=== PATIENT | male | born 1980 | race African-American/Black ===

== ENCOUNTER 2016-09-04 04:51 | Day surgery (SDC) | payer OTHER ==
[2016-09-02 12:40] VITALS: BMI 56.5
[2016-09-04] MEDS ORDERED: BUPIVACAINE HCL/PF 0.5% (5MG/ML) 10 ML VIAL ONE ×2 (07:10→10:32)
[2016-09-04] MEDS ORDERED: SUCCINYLCHOLINE CHLORIDE 200 MG/10 ML VIAL ONE (07:24)
[2016-09-04] MEDS ORDERED: PROPOFOL 20 ML ONE ×3 (07:24→09:52)
[2016-09-04] MEDS ORDERED: ceFAZolin SODIUM 1 GM VIAL ONE ×2 (07:24→09:05)
[2016-09-04] MEDS ORDERED: MIDAZOLAM HCL 2 MG/2 ML SINGLE DOSE VIAL ONE (07:24)
[2016-09-04 08:18] LABS: INR 1.08 (0.82-1.09); PROTHROMBIN TIME (PATIENT) 11.9 SEC (9.98-11.88)
[2016-09-04] MEDS ORDERED: ROCURONIUM BROMIDE 50 MG/5 ML VIAL ONE ×2 (08:50→09:15)
[2016-09-04] MEDS ORDERED: SODIUM CHLORIDE 0.9% P/F 10 ML VIAL IJ ONE (09:05)
--- NOTE | 2016-09-04 09:09 | HP ---
[facility] - Chief Complaint Chief Complaint: left knee pain History of Present Illness: left knee medial meniscus tear and partial quadriceps tendon rupture History Source: Patient Limitations to Obtaining History: No Limitations - Past Medical History Allergies/Adverse Reactions: Allergies Allergy/AdvReac Type Severity Reaction Status Date / Time Penicillins Allergy Hives Verified 09/04/16 07:23 Cardiovascular: Yes: Other ("Borderline HTN") Pulmonary: Yes: Sleep Apnea - Current Medications Current Medications: Medication Instructions Recorded Celecoxib [CeleBREX -] 200 mg PO BID #14 capsule 09/01/14 Meloxicam [Mobic] 15 mg PO DAILY 09/02/16 Oxycodone HCl/Acetaminophen 2 each PO Q8H 09/02/16 [Percocet 10-325 mg Tablet] Satellite Physical Exam - Physical Examination Vital Signs: Vital Signs Period Temp Pulse Resp BP Sys/Villa Pulse Ox Last 24 Hr 97.9 F 89 20 147/90 99 General Appearance: Well Nourished ENT: Clear Lung: Clear to auscultation Heart: Regular rate & rhythm Breasts: Soft Abdomen: Soft Extremities: No edema Satellite Impression/Plan - Impression/Plan Impression: left knee medial meniscus tear, and partial distal quadriceps tendon rupture Operative Procedure: left knee arthroscopy, partial medial meniscectomy, open distal quadriceps tendon repair Date to be Performed: 09/04/16
[2016-09-04] MEDS ORDERED: ceFAZolin SODIUM 1 GM VIAL IVPB ONE (09:22)
[2016-09-04] MEDS ORDERED: BUPIVACAINE HCL/PF 0.5% (5MG/ML) 10 ML VIAL IJ ONE (09:52)
[2016-09-04] MEDS ORDERED: NEOSTIGMINE METHYLSULFATE 0.5 MG/ML - 10 ML MDV ONE (09:56)
[2016-09-04] MEDS ORDERED: METOPROLOL TARTRATE 5 MG/5 ML VIAL ONE (09:58)
[2016-09-04] MEDS ORDERED: HYDROmorphone HCL/PF 1 MG/ML VIAL (FOR PYXIS CHARGING ONLY) ONE (10:02)
[2016-09-04] MEDS ORDERED: PROMETHAZINE HCL 25 MG/1 ML VIAL IVPUSH PRN (10:13)
[2016-09-04] MEDS ORDERED: oxyCODONE HCL 5 MG TABLET PO PRN (10:13)
[2016-09-04] MEDS ORDERED: ONDANSETRON 4 MG/2 ML VIAL IVPUSH PRN (10:13)
[2016-09-04] MEDS ORDERED: LACTATED RINGERS SOLUTION 1,000 ML IV SCH (10:15)
--- NOTE | 2016-09-04 10:43 | OP ---
Operative Note - Note: Operative Date: 09/04/16 Pre-Operative Diagnosis: left knee pain, medial meniscus tear, distal quadriceps tendon repair Operation: left knee arthroscopy, partial medial meniscectomy, debridement chondroplasty, open distal quadriceps tendon repair, removal of loose bodies Post-Operative Diagnosis: Same as Pre-op Surgeon: Humberto Amador Anesthesiologist/TREE DRILLER: Hipolito Valle Anesthesia: General, Local Estimated Blood Loss (mls): 50 Blood Volume Replaced (mls): 0 Fluid Volume Replaced (mls): 1,000 Operative Report Dictated: Yes
[2016-09-04] MEDS ORDERED: ACETAMINOPHEN INJECTION 100 ML IVPB ONE (12:02)
[2016-09-04] MEDS ORDERED: ACETAMINOPHEN 1000 MG/100 ML VIAL (NON FORMULARY) IVPB ONE ×2 (12:04→13:09)
[2016-09-04 12:39] VITALS: TEMP 98.5
--- NOTE | 2016-09-04 12:47 | OP ---
DATE OF OPERATION: 09/04/2016 PREOPERATIVE DIAGNOSIS: Left knee pain, medial meniscus tear, and distal quadriceps tendon rupture. POSTOPERATIVE DIAGNOSIS: Left knee pain, medial meniscus tear, and distal quadriceps tendon rupture, osteoarthritis. PROCEDURE: Left knee arthroscopy, partial medial meniscectomy, debridement chondroplasty, removal of loose bodies, and open distal quadriceps tendon repair. SURGEON: Mata Marcos MD ACADEMIC COMPUTING DIRECTOR: None. ANESTHESIA: Laryngeal mask anesthesia and local injection of 20 mL 0.5% Marcaine. Hipolito Valle CRNA DRAINS: None. COMPLICATIONS: None. FLUID REPLACEMENT: 1000 mL Plasmalyte. BLOOD LOSS: 50 mL. BLOOD GIVEN: None. This patient is a 35-year-old male with a preoperative diagnosis of left knee pain, medial meniscus tear, and distal quadriceps tendon rupture. After understanding the potential risks, complications, alternatives, and benefits to surgical versus nonsurgical treatment, the patient elected to undergo this procedure. He understands he will not get complete relief of his pain, he may have continued disability. The patient was brought to the operating room, peripheral IV placed, IV sedation given. LM anesthesia was induced. Tourniquet was applied to the left upper thigh. The left lower extremity was prepped and draped in sterile fashion and arthroscopy was performed. The patient is quite overweight. At times difficult to control bleeding. He had preoperative high PTT. His liver enzymes are high, likely because of a fatty liver, but with the tourniquet up at 325 mmHg, we did our best. Superomedial outflow portal was established, lateral portal was established, under direct visualization a medial portal was established. The patient was seen to have a large grade 4 area of osteoarthritis on the medial femoral condyle. I am sure this is the cause of his medial-sided pain. There were a lot of loose bodies, large pieces of articular cartilage and loose flaps peeling off the bone. A debridement chondroplasty was performed and removal of loose bodies performed. Other large pieces had already denuded from the bone. The patient had a small tear of the posterior horn of the medial meniscus. This was debrided as well. Photographs were taken. The lateral compartment looked good, the patellofemoral compartment looked good, the ACL looked good. We removed the arthroscopy portals. Excess saline was removed, and the portals were closed with 3-0 nylon sutures. We then re-prepped. We took off the Styrofoam ring, re-prepped and draped in a sterile fashion and the previous incision was used. A longitudinal incision was made with a number 10 scalpel blade. Subcutaneous hemostasis achieved with a Bovie cautery. Weitlaner retractors were placed into the wound. Dissection was done with the Bovie cautery as well as Perez scissors. There was a tremendous amount of scar tissue in this area binding down normal tissue planes. I was able to get down to the patella. That and the patellar tendon looked good. The distal quadriceps tendon was avulsed off the medial aspect of the patella. The central portion/rectus femoris and the entire lateral aspect/vastus lateralis all looked good. It felt good, it looked good, and was connected to the top of the patella. Therefore the medial retinaculum and medial vastus medialis was repaired with a single interrupted FiberWire. It came together nicely. I put the knee through a range of motion though it looked good. The knee was copiously irrigated and washed out. I then used Gelfoam soaked with thrombin to try to get additional hemostasis to help his elevated liver enzymes and PTT. After letting it sit there for 5 minutes, it was removed and 0 Vicryl used to close the deep adipose and scar tissue layer. 2-0 Vicryl was used to close the deep dermal layer. Final skin reapproximation was done with pedro. The area was then washed and dried, and 20 mL 0.5% Marcaine injected around the surgical incision. It was then covered with Xeroform, 4 x 4 gauze, ABDs, Webril, and two 6-inch Tony bandages. The tourniquet was taken down after total tourniquet time of about 60 minutes. There were no complications during the case. The patient tolerated the procedure quite well, was brought to the ambulatory recovery room in stable condition. MATA MARCOS M.D. [id number]
[2016-09-04] MEDS ORDERED: oxyCODONE HCL 5 MG TABLET ONE ×2 (13:06→13:43)
[2016-09-04 14:43] VITALS: BP 142/72; PULSE 107
--- NOTE | 2016-09-04 15:35 | EKG ---
Test Reason : Blood Pressure : / mmHG Vent. Rate : 095 BPM Atrial Rate : 095 BPM P-R Int : 184 ms QRS Dur : 106 ms QT Int : 394 ms P-R-T Axes : 041 011 039 degrees QTc Int : 495 ms NORMAL SINUS RHYTHM INCOMPLETE RIGHT BUNDLE BRANCH BLOCK NONSPECIFIC T WAVE ABNORMALITY PROLONGED QT ABNORMAL ECG WHEN COMPARED WITH ECG OF 31-AUG-2014 10:11, NO SIGNIFICANT CHANGE WAS FOUND Confirmed by JAYCOB GUAMAN, LO ([id number]) on 09/04/2016 3:35:26 PM Referred By: Humberto Amador Confirmed By:LO DEVRIES MD
--- NOTE | 2016-09-05 13:21 | PATH ---
Surgical Pathology Report Patient Name: ANJUM GUAMAN Med. Rec. #: [id number] /Age/Gender: 1980 (Age: 35) / M Account: [id number] Location: [facility] Taken: 09/04/2016 Received: 09/04/2016 Reported: 09/05/2016 Physicians: Humberto Amador M.D. Specimen(s) Received SHAVINGS LEFT KNEE Clinical History Torn meniscus left knee Final Diagnosis SOFT TISSUE, LEFT KNEE, ARTHROSCOPIC SHAVINGS: SYNOVIUM AND FIBROCARTILAGE WITH MYXOHYALINE DEGENERATION. Electronically Signed Yfn Kulkarni M.D. Gross Description Received in formalin, labeled "left knee shavings" is a 1.4 x 1.4 x 0.3 cm aggregate of pereira-yellow soft tissue fragments. A reimbursement representative portion is submitted in one cassette. /09/04/201609/04/2016
== END 2016-09-04 14:30 | disposition home or self-care (01) ==
LOC: JASU-SURG 04:51
PROVIDERS: ATTEND Orthopaedic Surgery
PROC: 0LQM0ZZ Repair Left Upper Leg Tendon, Open Approach (ICD-10-PCS; 2016-09-04)
PROC: 0SBD4ZZ Excision of Left Knee Joint, Percutaneous Endoscopic Approach (ICD-10-PCS; principal; 2016-09-04 08:00)
PROC: 0SCD4ZZ Extirpation of Matter from Left Knee Joint, Percutaneous Endoscopic Approach (ICD-10-PCS; 2016-09-04 08:00)
DX: S76.112A Strain of left quadriceps muscle, fascia and tendon, initial encounter (principal); S83.242A Other tear of medial meniscus, current injury, left knee, initial encounter; M17.12 Unilateral primary osteoarthritis, left knee; X58.XXXA Exposure to other specified factors, initial encounter; Y93.9 Activity, unspecified; Y92.9 Unspecified place or not applicable; Y99.9 Unspecified external cause status
CPT/HCPCS: 36415; 85610; 85730; 88304-TC; 93005; 93010; 94760

== ENCOUNTER 2018-04-30 17:15 | Emergency (ER) | payer OTHER ==
--- NOTE | 2018-04-30 17:36 | PDOC ---
Rapid Medical Evaluation Time Seen by Provider: 04/30/18 17:31 Medical Evaluation: Allergies Allergy/AdvReac Type Severity Reaction Status Date / Time Penicillins Allergy Hives Verified 09/04/16 07:23 04/30/18 17:33 I have performed a brief in-person evaluation of this patient. The patient presents with a chief complaint of:L lower back pain since yesterday. No trauma or other inciting factors. No sxs. Did not take anything for pain. Morbidly obesed male Pertinent physical exam findings:Unremarkable I have ordered the following:nothing The patient will proceed to the ED for further evaluation. Discharge Disposition - Diagnosis Low back pain Qualifiers: Chronicity: acute Back pain laterality: left Sciatica presence: without sciatica Qualified Code(s): M54.5 - Low back pain - Referrals - Patient Instructions - Post Discharge Activity
[2018-04-30 17:41] VITALS: BP 210/94; PULSE 116; TEMP 98.6; BMI 64.5
[2018-04-30] MEDS ORDERED: diazePAM 5 MG TABLET PO ONE (17:54)
[2018-04-30] MEDS ORDERED: KETOROLAC TROMETHAMINE 60 MG/2 ML VIAL IM ONE (17:54)
[2018-04-30] MEDS ORDERED: KETOROLAC TROMETHAMINE 60 MG/2 ML VIAL ONE (17:59)
[2018-04-30] MEDS ORDERED: diazePAM 5 MG TABLET ONE (17:59)
--- NOTE | 2018-04-30 18:00 | PDOC ---
History of Present Illness - General Chief Complaint: Back Pain Stated Complaint: BACK PAIN Time Seen by Provider: 04/30/18 17:31 History Source: Patient Exam Limitations: No Limitations - History of Present Illness Initial Comments: 04/30/18 17:55 37 yr male with left lower back pain radiating to the buttocks started yesterday while driving. Pt did not take any pain meds now has diffuculty ambulating. Pt denies any urinary complaints. Pt is obese has no medications no history of high blood pressure. Occurred: reports: yesterday Severity: reports: moderate Pain Location: reports: back Associated Symptoms (Fall): muscle spasms Past History - Past Medical History Allergies/Adverse Reactions: Allergies Allergy/AdvReac Type Severity Reaction Status Date / Time Penicillins Allergy Hives Verified 04/30/18 17:35 Home Medications: Ambulatory Orders Diazepam [Valium] 5 mg PO Q8H PRN #15 tablet MDD 15mg 04/30/18 Naproxen [Naprosyn -] 500 mg PO BID PRN #14 tablet 04/30/18 Anemia: No Asthma: No Cancer: No Cardiac Disorders: Yes (occasional papitations) CVA: No COPD: No CHF: No Dementia: No Diabetes: No GI Disorders: No Disorders: No HTN: Yes (stopped taking meds in 2009) Hypercholesterolemia: No Liver Disease: No Seizures: No Thyroid Disease: Yes (hypoactive, stopped taking meds 2009) - Surgical History Orthopedic Surgery: Yes (left ankle orif 1998, harware removed) - Suicide/Smoking/Psychosocial Hx Smoking History: Never smoked Have you smoked in the past 12 months: No If you are a former smoker, when did you quit?: 2012 Hx Alcohol Use: No Drug/Substance Use Hx: No Substance Use Type: None Hx Substance Use Treatment: No *Physical Exam - Vital Signs Last Vital Signs Temp Pulse Resp BP Pulse Ox 98.6 F 116 H 16 210/94 99 04/30/18 17:37 04/30/18 17:37 04/30/18 17:37 04/30/18 17:37 04/30/18 17:37 - Physical Exam General Appearance: Yes: Nourished, Appropriately Dressed, Obese HEENT: positive: EOMI, SANTHOSH, Normal ENT Inspection Neck: positive: Supple. negative: Tender Cardiovascular: positive: Regular Rhythm, Tachycardia (pain ) Gastrointestinal/Abdominal: positive: Other (obese abdomen ) Musculoskeletal: positive: Normal Inspection, Muscle Spasm. negative: Vertebral Tenderness Extremity: positive: Normal Capillary Refill, Normal Inspection, Normal Range of Motion Integumentary: positive: Normal Color, Dry, Warm Neurologic: positive: Fully Oriented, Alert, Normal Mood/Affect, Normal Response , Motor Strength 5/5 Medical Decision Making - Medical Decision Making 04/30/18 18:03 cc: low back pain to left buttock and thigh no saddle anesthesia no urinary complaints no abd pain will give toradol and valium 04/30/18 18:42 pt feels better after meds will dc home with naprosyn and valium strict follow up with the PMD and the urologist Dr. Redman Return if any worsening symptoms 04/30/18 18:57 pt improved ambulated out of the ER pain improved. dc inst verbally given and all questions asked and answered at discharge. *DC/Admit/Observation/Transfer Diagnosis at time of Disposition: Low back pain Qualifiers: Chronicity: acute Back pain laterality: left Sciatica presence: without sciatica Qualified Code(s): M54.5 - Low back pain - Discharge Dispostion Disposition: HOME Condition at time of disposition: Good - Prescriptions Prescriptions: Diazepam [Valium] 5 mg PO Q8H PRN #15 tablet MDD 15mg PRN Reason: Back Pain Naproxen [Naprosyn -] 500 mg PO BID PRN #14 tablet PRN Reason: Back Pain - Referrals Referrals: Gonzalo Parker MD [Primary Care Provider] - Rodolfo Redman MD [Staff Physician] - - Patient Instructions Additional Instructions: apply warm compresses to the area of pain every 4-6hrs for 20 minutes take the pain medication as prescribed follow up with primary care doctor and the urologist if any worsening symptoms - Post Discharge Activity
[2018-04-30 18:25] LABS: URINE APPEARANCE CLEAR; URINE BILIRUBIN NEGATIVE (<2.0 mg/dL); URINE COLOR YELLOW; URINE GLUCOSE (UA) NEGATIVE (NEGATIVE); URINE KETONE NEGATIVE (NEGATIVE); URINE LEUK ESTERASE NEGATIVE (NEGATIVE); URINE NITRITE NEGATIVE (NEGATIVE); URINE PROTEIN NEGATIVE (NEGATIVE); URINE UROBILINOGEN NEGATIVE mg/dL (0.2-1.0)
[2018-04-30 18:34] LABS: EPI CELLS RARE /HPF (FEW); URINE MUCUS RARE
== END 2018-04-30 19:01 | disposition home or self-care (01) ==
LOC: JERFT 17:15
PROC: 3E0233Z Introduction of Anti-inflammatory into Muscle, Percutaneous Approach (ICD-10-PCS; principal; 2018-04-30)
DX: M54.5 Low back pain (principal); I10 Essential (primary) hypertension; E03.9 Hypothyroidism, unspecified
CPT/HCPCS: 81003; 81015; 96372; 99281-25

== ENCOUNTER 2022-01-22 09:37 | Inpatient (IN) | payer OTHER ==
[2022-01-22] MEDS ORDERED: SODIUM CHLORIDE IV ONE (11:16)
[2022-01-22] MEDS ORDERED: ACETAMINOPHEN 1000 MG/100 ML BAG IVPB ONE (11:18)
[2022-01-22] MEDS ORDERED: MEROPENEM 1 GM in DEXTROSE 5%-WATER 100 ML IVPB ONE (11:21)
[2022-01-22] MEDS ORDERED: VANCOMYCIN/WATER 2 GM/400 ML PREMIX BAG IVPB ONE (11:24)
[2022-01-22] MEDS ORDERED: SODIUM CHLORIDE 0.9% 1000 ML INFUS.BAG IV ONE (11:25)
[2022-01-22] MEDS ORDERED: ACETAMINOPHEN INJECTION 100 ML IVPB ONE (11:49)
[2022-01-22] MEDS ORDERED: MEROPENEM 1 GM VIAL (RESTRICTED TO ID) IVPB ONE (12:04)
[2022-01-22 12:06] LABS: VENOUS BASE EXCESS -1.4 mmol/L (-2-2); VENOUS O2 SATURATION 87.7 % (70-80); VENOUS PCO2 37.9 mmHg (38-52); VENOUS PH 7.401 (7.310-7.410)
[2022-01-22 12:08] LABS: BASO % 0.6 % (0-2.0); EOS % 0.3 % (0-4.5); HEMATOCRIT 38.8 % (35.4-49); HEMOGLOBIN 13.5 GM/dL (11.7-16.9); LYMPH % 12.6 % (8-40); MCH 28.9 pg (25.7-33.7); MCHC 34.9 g/dl (32.0-35.9); MEAN CELL VOLUME 82.7 fl (80-96); MEAN PLT VOLUME 8.3 fl (7.5-11.1); MONO % 8.9 % (3.8-10.2); NEUT % 77.6 % (42.8-82.8); PLATELET COUNT 446 10^3/uL (134-434); RBC 4.69 M/mm3 (4.00-5.60); RDW 13.5 % (11.9-15.9); WHITE BLOOD COUNT 17.1 K/mm3 (4.0-10.0)
[2022-01-22 12:16] LABS: INR 1.33 (0.83-1.09); PROTHROMBIN TIME (PATIENT) 15.3 SEC (9.7-13.0)
[2022-01-22 12:18] LABS: ACTIVATED PTT 35.1 SECONDS (25.2-36.5)
[2022-01-22] MEDS ORDERED: morphine CARPU-JECT 4 MG/1 ML DISP.SYRIN IVPUSH ONE (12:25)
[2022-01-22 12:28] LABS: ALBUMIN 3.5 g/dl (3.4-5.0); CALCIUM 9.3 mg/dL (8.5-10.1)
[2022-01-22 12:29] LABS: BLOOD UREA NITROGEN 9.4 mg/dL (7-18)
[2022-01-22 12:32] LABS: CREATININE 0.9 mg/dL (0.55-1.3)
[2022-01-22 12:33] LABS: BILIRUBIN,TOTAL 0.8 mg/dL (0.2-1); TOT PROT 7.4 g/dl (6.4-8.2)
[2022-01-22 12:34] LABS: LACTIC ACID 2.5 mmol/L (0.4-2.0)
[2022-01-22] MEDS ORDERED: morphine SULFATE 4 MG/ML VIAL ONE (12:54)
[2022-01-22] MEDS ORDERED: SODIUM CHLORIDE 1,000 ML IV SCH ×2 (13:15→15:59)
[2022-01-22] MEDS ORDERED: BUPIVACAINE HCL/PF 0.5% (5MG/ML) 10 ML VIAL ONE ×2 (13:59→14:11)
[2022-01-22] MEDS ORDERED: PROPOFOL 20 ML ONE ×3 (14:07)
[2022-01-22] MEDS ORDERED: VANCOMYCIN 1,000 MG VIAL (RESTRICTED TO ID ONLY) ONE (14:12)
[2022-01-22] MEDS ORDERED: MIDAZOLAM HCL 2 MG/2 ML SINGLE DOSE VIAL ONE ×2 (14:18)
[2022-01-22] MEDS ORDERED: MEROPENEM 1 GM in DEXTROSE 5%-WATER 100 ML IVPB SCH ×2 (14:30→22:00)
[2022-01-22] MEDS ORDERED: VANCOMYCIN 1,000 MG VIAL (RESTRICTED TO ID ONLY) IVPB ONE (14:50)
[2022-01-22] MEDS ORDERED: BUPIVACAINE HCL/PF 0.5% (5MG/ML) 10 ML VIAL IJ ONE (14:54)
[2022-01-22] MEDS ORDERED: ONDANSETRON 4 MG/2 ML VIAL IVPUSH PRN (16:07)
[2022-01-22] MEDS ORDERED: INSULIN SLIDING SCALE (NOVOLOG) 1 VIAL SQ SCH (16:30)
[2022-01-22] MEDS: LACTATED RINGERS SOLUTION 1,000 ML IV SCH (17:00)
[2022-01-22] MEDS ORDERED: INSULIN (NOVOLOG) ASPART 100 UNITS/ML 10ML VIAL ONE (21:09)
[2022-01-22] MEDS: INSULIN SLIDING SCALE (NOVOLOG) 1 VIAL SQ SCH (21:47)
[2022-01-22] MEDS: INSULIN (LEVEMIR) 100 UNITS/ML UNITS SQ SCH (21:48)
[2022-01-22] MEDS ORDERED: INSULIN (LEVEMIR) 100 UNITS/ML UNITS SQ SCH (22:00)
[2022-01-23] MEDS ORDERED: MEROPENEM 1 GM VIAL (RESTRICTED TO ID) IVPB ONE ×3 (01:37→17:21)
[2022-01-23] MEDS ORDERED: ACETAMINOPHEN 1000 MG/100 ML BAG IVPB ONE (01:53)
[2022-01-23] MEDS ORDERED: MEROPENEM 1 GM in DEXTROSE 5%-WATER 100 ML IVPB SCH (02:30)
[2022-01-23] MEDS: INSULIN (LEVEMIR) 100 UNITS/ML UNITS SQ SCH ×2 (06:05→21:57)
[2022-01-23] MEDS: INSULIN SLIDING SCALE (NOVOLOG) 1 VIAL SQ SCH ×5 (06:05→21:59)
[2022-01-23] MEDS: LACTATED RINGERS SOLUTION 1,000 ML IV SCH (07:16)
[2022-01-23] MEDS ORDERED: morphine SULFATE 4 MG/ML VIAL IVPUSH PRN (09:13)
[2022-01-23] MEDS ORDERED: oxyCODONE HCL 5 MG TABLET PO PRN (09:13)
[2022-01-23] MEDS ORDERED: NALOXONE HCL 0.4 MG/ML VIAL IVPUSH PRN (09:13)
[2022-01-23] MEDS ORDERED: ACETAMINOPHEN 325 MG TABLET (FP) PO PRN ×2 (09:13→12:19)
[2022-01-23] MEDS ORDERED: IBUPROFEN 400 MG TABLET (FP) PO PRN ×2 (09:26→12:19)
[2022-01-23] MEDS ORDERED: KETOROLAC TROMETHAMINE 30 MG/1 ML VIAL IVPUSH PRN (09:26)
[2022-01-23 09:46] LABS: BASO % 0.4 % (0-2.0); EOS % 0.8 % (0-4.5); HEMOGLOBIN 12.1 GM/dL (11.7-16.9); LYMPH % 28.7 % (8-40); MCH 29.2 pg (25.7-33.7); MCHC 34.5 g/dl (32.0-35.9); MEAN CELL VOLUME 84.6 fl (80-96); MEAN PLT VOLUME 8.3 fl (7.5-11.1); MONO % 10.7 % (3.8-10.2); NEUT % 59.4 % (42.8-82.8); PLATELET COUNT 406 10^3/uL (134-434); RBC 4.14 M/mm3 (4.00-5.60); RDW 13.4 % (11.9-15.9); WHITE BLOOD COUNT 11.5 K/mm3 (4.0-10.0)
[2022-01-23 09:55] LABS: ALBUMIN 2.8 g/dl (3.4-5.0); CALCIUM 8.7 mg/dL (8.5-10.1); MAGNESIUM 2.1 mg/dL (1.8-2.4)
[2022-01-23 10:00] LABS: BILIRUBIN,TOTAL 0.5 mg/dL (0.2-1); CREATININE 0.6 mg/dL (0.55-1.3); PHOSPHOROUS 3.5 mg/dL (2.5-4.9); TOT PROT 6.2 g/dl (6.4-8.2)
[2022-01-23] MEDS ORDERED: VANCOMYCIN 1 GM in D5W (PRE-DOCKED) 1,000 MG/250 ML IVPB SCH ×2 (10:00→12:00)
[2022-01-23] MEDS ORDERED: DEXTROSE 5%-WATER 100 ML IVPB ONE ×2 (11:23→17:21)
[2022-01-23] MEDS: MEROPENEM 1 GM in DEXTROSE 5%-WATER 100 ML IVPB SCH ×2 (11:27→17:33)
[2022-01-23] MEDS ORDERED: INSULIN (NOVOLOG) ASPART 100 UNITS/ML 10ML VIAL ONE ×2 (12:41→19:07)
[2022-01-23] MEDS: VANCOMYCIN/WATER 1250 MG 1,250 MG/250 ML BAG IVPB SCH ×2 (12:43→23:08)
[2022-01-23] MEDS ORDERED: clonazePAM 0.25 MG ODT TABLETS SL ONE (22:47)
[2022-01-24] MEDS ORDERED: MEROPENEM 1 GM VIAL (RESTRICTED TO ID) IVPB ONE (01:40)
[2022-01-24] MEDS ORDERED: DEXTROSE 5%-WATER 100 ML IVPB ONE (01:41)
[2022-01-24] MEDS: MEROPENEM 1 GM in DEXTROSE 5%-WATER 100 ML IVPB SCH (02:18)
[2022-01-24] MEDS: LACTATED RINGERS SOLUTION 1,000 ML IV SCH ×2 (06:20→17:18)
[2022-01-24] MEDS: INSULIN (LEVEMIR) 100 UNITS/ML UNITS SQ SCH ×2 (06:27→21:56)
[2022-01-24] MEDS: INSULIN SLIDING SCALE (NOVOLOG) 1 VIAL SQ SCH ×4 (06:27→22:56)
[2022-01-24 10:37] LABS: BASO % 0.8 % (0-2.0); EOS % 1.1 % (0-4.5); HEMATOCRIT 39.9 % (35.4-49); HEMOGLOBIN 14.1 GM/dL (11.7-16.9); LYMPH % 35.5 % (8-40); MCH 29.7 pg (25.7-33.7); MCHC 35.3 g/dl (32.0-35.9); MEAN CELL VOLUME 84.3 fl (80-96); MEAN PLT VOLUME 8.2 fl (7.5-11.1); MONO % 8.7 % (3.8-10.2); NEUT % 53.9 % (42.8-82.8); PLATELET COUNT 577 10^3/uL (134-434); RBC 4.74 M/mm3 (4.00-5.60); RDW 13.8 % (11.9-15.9); WHITE BLOOD COUNT 10.7 K/mm3 (4.0-10.0)
[2022-01-24 11:02] LABS: BLOOD UREA NITROGEN 12.9 mg/dL (7-18)
[2022-01-24 11:03] LABS: CALCIUM 9.5 mg/dL (8.5-10.1)
[2022-01-24 11:04] LABS: CREATININE 0.8 mg/dL (0.55-1.3)
[2022-01-24] MEDS: VANCOMYCIN/WATER 1250 MG 1,250 MG/250 ML BAG IVPB SCH (11:22)
[2022-01-24] MEDS ORDERED: POLYETHYLENE GLYCOL (HEALTHYLAX) 3350 17 GM PACKET PO PRN (11:38)
[2022-01-24] MEDS: SENNOSIDES 8.6MG TABLET (FP) PO SCH (21:55)
[2022-01-24] MEDS: ALPRAZolam 0.25 MG TABLET PO PRN (21:55)
[2022-01-24] MEDS: DOCUSATE SODIUM 100 MG CAPSULE (FP) PO SCH (21:56)
[2022-01-24] MEDS: NYSTATIN 100,000 UNIT/GM TOPICAL CREAM 15 GM TUBE TP SCH (21:56)
[2022-01-25] MEDS: VANCOMYCIN/WATER 1250 MG 1,250 MG/250 ML BAG IVPB SCH ×3 (00:36→22:58)
[2022-01-25] MEDS: LACTATED RINGERS SOLUTION 1,000 ML IV SCH (02:34)
[2022-01-25] MEDS: INSULIN SLIDING SCALE (NOVOLOG) 1 VIAL SQ SCH ×4 (07:13→23:14)
[2022-01-25] MEDS: INSULIN (LEVEMIR) 100 UNITS/ML UNITS SQ SCH ×2 (07:13→22:57)
[2022-01-25 08:21] VITALS: BMI 35.7
[2022-01-25 08:56] LABS: BASO % 0.7 % (0-2.0); HEMATOCRIT 34.5 % (35.4-49); HEMOGLOBIN 12.2 GM/dL (11.7-16.9); LYMPH % 35.4 % (8-40); MCH 29.5 pg (25.7-33.7); MCHC 35.5 g/dl (32.0-35.9); MEAN PLT VOLUME 7.6 fl (7.5-11.1); MONO % 11.1 % (3.8-10.2); NEUT % 51.8 % (42.8-82.8); PLATELET COUNT 439 10^3/uL (134-434); RBC 4.15 M/mm3 (4.00-5.60); RDW 13.4 % (11.9-15.9); WHITE BLOOD COUNT 9.4 K/mm3 (4.0-10.0)
[2022-01-25 09:11] LABS: CALCIUM 9.1 mg/dL (8.5-10.1)
[2022-01-25 09:12] LABS: BLOOD UREA NITROGEN 14.7 mg/dL (7-18)
[2022-01-25 09:15] LABS: CREATININE 0.7 mg/dL (0.55-1.3)
[2022-01-25] MEDS: NYSTATIN 100,000 UNIT/GM TOPICAL CREAM 15 GM TUBE TP SCH ×2 (11:05→22:57)
[2022-01-25] MEDS: ALPRAZolam 0.25 MG TABLET PO PRN ×2 (11:40→23:11)
[2022-01-25] MEDS: ENOXAPARIN NA (PORCINE) 40 MG/0.4 ML DISP.SYRIN SQ SCH (15:00)
[2022-01-25] MEDS: DOCUSATE SODIUM 100 MG CAPSULE (FP) PO SCH (22:56)
[2022-01-25] MEDS: SENNOSIDES 8.6MG TABLET (FP) PO SCH (22:57)
[2022-01-25] MEDS: KETOROLAC TROMETHAMINE 30 MG/1 ML VIAL IVPUSH PRN (23:12)
[2022-01-26] MEDS: INSULIN (LEVEMIR) 100 UNITS/ML UNITS SQ SCH ×2 (07:52→22:56)
[2022-01-26] MEDS: INSULIN SLIDING SCALE (NOVOLOG) 1 VIAL SQ SCH ×4 (07:52→22:56)
[2022-01-26] MEDS: ENOXAPARIN NA (PORCINE) 40 MG/0.4 ML DISP.SYRIN SQ SCH (09:34)
[2022-01-26] MEDS: NYSTATIN 100,000 UNIT/GM TOPICAL CREAM 15 GM TUBE TP SCH ×2 (09:34→22:56)
[2022-01-26] MEDS: VANCOMYCIN/WATER 1250 MG 1,250 MG/250 ML BAG IVPB SCH ×2 (11:20→22:56)
[2022-01-26] MEDS: ALPRAZolam 0.25 MG TABLET PO PRN ×2 (11:56→22:55)
[2022-01-26] MEDS: KETOROLAC TROMETHAMINE 30 MG/1 ML VIAL IVPUSH PRN (11:56)
[2022-01-26] MEDS: DOCUSATE SODIUM 100 MG CAPSULE (FP) PO SCH (22:55)
[2022-01-26] MEDS: SENNOSIDES 8.6MG TABLET (FP) PO SCH (22:55)
[2022-01-27] MEDS: INSULIN SLIDING SCALE (NOVOLOG) 1 VIAL SQ SCH ×2 (07:23→13:14)
[2022-01-27] MEDS: INSULIN (LEVEMIR) 100 UNITS/ML UNITS SQ SCH (07:25)
[2022-01-27 08:23] VITALS: BP 136/72; PULSE 80; TEMP 98.1
[2022-01-27 09:58] LABS: BASO % 0.9 % (0-2.0); EOS % 1.2 % (0-4.5); HEMATOCRIT 34.2 % (35.4-49); HEMOGLOBIN 12.2 GM/dL (11.7-16.9); LYMPH % 37.4 % (8-40); MCHC 35.6 g/dl (32.0-35.9); MEAN CELL VOLUME 84.1 fl (80-96); MEAN PLT VOLUME 7.8 fl (7.5-11.1); MONO % 8.9 % (3.8-10.2); NEUT % 51.6 % (42.8-82.8); PLATELET COUNT 443 10^3/uL (134-434); RBC 4.07 M/mm3 (4.00-5.60); RDW 13.4 % (11.9-15.9); WHITE BLOOD COUNT 9.3 K/mm3 (4.0-10.0)
[2022-01-27] MEDS: ENOXAPARIN NA (PORCINE) 40 MG/0.4 ML DISP.SYRIN SQ SCH (10:02)
[2022-01-27] MEDS: NYSTATIN 100,000 UNIT/GM TOPICAL CREAM 15 GM TUBE TP SCH (10:03)
[2022-01-27 10:14] LABS: CALCIUM 8.8 mg/dL (8.5-10.1)
[2022-01-27 10:15] LABS: BLOOD UREA NITROGEN 15.1 mg/dL (7-18); MAGNESIUM 2.2 mg/dL (1.8-2.4)
[2022-01-27 10:16] LABS: ALBUMIN 2.9 g/dl (3.4-5.0)
[2022-01-27 10:18] LABS: CREATININE 0.6 mg/dL (0.55-1.3)
[2022-01-27 10:19] LABS: BILIRUBIN,TOTAL 0.5 mg/dL (0.2-1); TOT PROT 6.7 g/dl (6.4-8.2)
[2022-01-27] MEDS: VANCOMYCIN/WATER 1250 MG 1,250 MG/250 ML BAG IVPB SCH (12:38)
[2022-01-27] MEDS ORDERED: INSULIN (NOVOLOG) ASPART 100 UNITS/ML 10ML VIAL ONE (12:49)
[2022-01-27] MEDS ORDERED: SULFAMETHOXAZOLE/TRIMETHOPRIM 800MG/160MG D.S. TABLET PO SCH (22:00)
== END 2022-01-27 14:17 | disposition home or self-care (01) | DRG 720 ==
LOC: JERFT 09:37 → JER 09:37 → JERBED 12:39 → J8W 18:14
PROVIDERS: ADMIT Internal Medicine; ATTEND Nurse Practitioner Acute Care
PROC: 0V950ZZ Drainage of Scrotum, Open Approach (ICD-10-PCS; principal; 2022-01-22 14:00)
DX: A41.9 Sepsis, unspecified organism (principal); Z68.43 Body mass index [BMI] 50.0-59.9, adult; E66.01 Morbid (severe) obesity due to excess calories; N49.2 Inflammatory disorders of scrotum; A49.02 Methicillin resistant Staphylococcus aureus infection, unspecified site; E03.9 Hypothyroidism, unspecified; D72.829 Elevated white blood cell count, unspecified; E11.65 Type 2 diabetes mellitus with hyperglycemia
CPT/HCPCS: 36415; 71045-TC-FY; 76870-TC; 80048; 80053; 82803; 82962; 83036; 83605; 83735; 84100; 84436; 84439; 84443; 84484; 85025; 85610; 85730; 86376; 86800; 86850; 86900; 86901; 87040; 87070; 87186; 87205; 93005; 93010; 94760; 99285-25; C9803-CS; G0480; U0003; U0005

== ENCOUNTER 2022-07-04 12:33 | Emergency (ER) | payer OTHER ==
[2022-07-04 12:42] VITALS: BP 152/96; RESP 18; TEMP 98.4; BMI 49.9
[2022-07-04] MEDS ORDERED: METHOCARBAMOL 500 MG TABLET PO ONE (13:09)
[2022-07-04] MEDS ORDERED: KETOROLAC TROMETHAMINE 15 MG/ML VIAL IM ONE (13:09)
[2022-07-04] MEDS ORDERED: ACETAMINOPHEN 325 MG TABLET (FP) PO ONE (13:10)
[2022-07-04] MEDS ORDERED: LIDOCAINE 5% TOPICAL PATCH TP ONE (13:10)
[2022-07-04] MEDS ORDERED: ACETAMINOPHEN 325 MG TABLET (FP) ONE (13:14)
[2022-07-04] MEDS ORDERED: KETOROLAC TROMETHAMINE 30 MG/1 ML VIAL ONE (13:14)
[2022-07-04] MEDS ORDERED: LIDOCAINE 5% TOPICAL PATCH ONE (13:14)
[2022-07-04] MEDS ORDERED: METHOCARBAMOL 500 MG TABLET ONE (13:14)
[2022-07-04 13:54] LABS: EPI CELLS 35 /uL (0-25.1); HYALINE CASTS 1 /uL (0-3.1); URINE APPEARANCE CLEAR; URINE BACTERIA 4 /uL (0-1359); URINE BILIRUBIN NEGATIVE (NEGATIVE); URINE COLOR YELLOW; URINE GLUCOSE (UA) NEGATIVE (NEGATIVE); URINE KETONE TRACE (NEGATIVE); URINE LEUK ESTERASE NEGATIVE (NEGATIVE); URINE NITRITE NEGATIVE (NEGATIVE); URINE PROTEIN 1+ (NEGATIVE); URINE RBC 12 /uL (0-23.9); URINE WBC 9 /uL (0-25.8)
[2022-07-04 15:59] VITALS: PULSE 95
[2022-07-04] MEDS ORDERED: LIDOCAINE PATCH REMOVAL MC ONE (22:00)
== END 2022-07-04 16:37 | disposition home or self-care (01) ==
LOC: JER 12:33
PROC: 3E0233Z Introduction of Anti-inflammatory into Muscle, Percutaneous Approach (ICD-10-PCS; principal; 2022-07-04)
DX: M54.9 Dorsalgia, unspecified (principal); V89.2XXA Person injured in unspecified motor-vehicle accident, traffic, initial encounter; Y92.9 Unspecified place or not applicable
CPT/HCPCS: 72131-TC; 72170-TC-FY; 81003; 82962; 99285-25

== ENCOUNTER 2022-07-23 11:02 | Observation (INO) | payer OTHER ==
[2022-07-23 11:32] VITALS: BMI 31.6
[2022-07-23 13:56] LABS: BASO % 0.8 % (0-2.0); EOS % 0.4 % (0-4.5); HEMATOCRIT 37.8 % (35.4-49); HEMOGLOBIN 13.3 GM/dL (11.7-16.9); LYMPH % 23.8 % (8-40); MCH 29.6 pg (25.7-33.7); MCHC 35.3 g/dl (32.0-35.9); MEAN CELL VOLUME 83.9 fl (80-96); MEAN PLT VOLUME 7.9 fl (7.5-11.1); MONO % 7.9 % (3.8-10.2); NEUT % 67.1 % (42.8-82.8); PLATELET COUNT 403 10^3/uL (134-434); RDW 13.2 % (11.9-15.9); WHITE BLOOD COUNT 10.2 K/mm3 (4.0-10.0)
[2022-07-23 14:09] LABS: CHLORIDE 102 mmol/L (98-107)
[2022-07-23 14:12] LABS: CALCIUM 9.1 mg/dL (8.5-10.1)
[2022-07-23 14:13] LABS: ALBUMIN 3.5 g/dl (3.4-5.0); BLOOD UREA NITROGEN 11.9 mg/dL (7-18); GLUCOSE,RANDOM 205 mg/dL (74-106)
[2022-07-23 14:16] LABS: SGOT/AST 11 U/L (15-37); SGPT/ALT 23 U/L (13-61)
[2022-07-23 14:17] LABS: BILIRUBIN,TOTAL 0.4 mg/dL (0.2-1); TOT PROT 7.2 g/dl (6.4-8.2)
[2022-07-23 14:21] LABS: ALK PHOS 84 U/L (45-117)
[2022-07-23 14:26] LABS: ANION GAP 6 MMOL/L (8-16); CO2 29 mmol/L (21-32); CREATININE 0.8 mg/dL (0.55-1.3); SODIUM 138 mmol/L (136-145)
[2022-07-23] MEDS ORDERED: ASPIRIN 325 MG TABLET PO ONE (15:24)
[2022-07-23 15:30] LABS: INR 1.08 (0.83-1.09); PROTHROMBIN TIME (PATIENT) 12.4 SEC (9.7-13.0)
[2022-07-23] MEDS ORDERED: LORazepam 1 MG TABLET PO ONE (15:30)
[2022-07-23 15:33] LABS: ACTIVATED PTT 34.9 SECONDS (25.2-36.5)
[2022-07-23] MEDS ORDERED: ASPIRIN 325 MG TABLET ONE (15:33)
[2022-07-23 15:51] LABS: CHOLESTEROL 226 mg/dL (50-200); TRIGLYCERIDES 192 mg/dL (0-150)
[2022-07-23 15:52] LABS: LDL CHOLESTEROL (ONLY SJRH) 170 mg/dL (5-100)
[2022-07-23 15:54] LABS: HDL CHOLESTEROL 32 mg/dL (40-60)
[2022-07-23] MEDS ORDERED: INSULIN SLIDING SCALE (NOVOLOG) 1 VIAL SQ SCH (16:30)
[2022-07-23 17:06] VITALS: BP 157/79; PULSE 83; RESP 18; TEMP 98.7
[2022-07-24] MEDS ORDERED: ENOXAPARIN NA (PORCINE) 40 MG/0.4 ML DISP.SYRIN SQ SCH (10:00)
== END 2022-07-23 17:10 | disposition left against medical advice (07) ==
LOC: JER 11:02 → JERBED 14:50
PROVIDERS: ADMIT Internal Medicine; ATTEND Internal Medicine
DX: R77.8 Other specified abnormalities of plasma proteins (principal); F41.9 Anxiety disorder, unspecified; E11.9 Type 2 diabetes mellitus without complications; E66.8 Other obesity; Z68.31 Body mass index [BMI] 31.0-31.9, adult; Z29.8 Encounter for other specified prophylactic measures; Z88.0 Allergy status to penicillin
CPT/HCPCS: 36415; 71046-TC-FY; 80053; 80061; 83036; 84443; 84484; 85025; 85610; 85730; 86850; 86900; 86901; 93005; 93010; 99285-25; C9803-CS; G0378; U0003; U0005

== ENCOUNTER 2023-11-17 12:32 | Emergency (ER) | payer OTHER ==
[2023-11-17 12:47] VITALS: RESP 18; BMI 46.5
[2023-11-17] MEDS ORDERED: FAMOTIDINE 20 MG/50 ML IVPB 20 MG/50 ML MG IVPB ONE (14:17)
[2023-11-17] MEDS ORDERED: MAG HYDROX/AL HYDROX/SIMETH 30 ML UNIT-DOSE CUP ONE (14:17)
[2023-11-17] MEDS: MAG HYDROX/AL HYDROX/SIMETH 30 ML UNIT-DOSE CUP PO ONE (14:45)
[2023-11-17] MEDS: FAMOTIDINE 20 MG/50 ML IVPB 20 MG/50 ML MG IVPB ONE (14:50)
[2023-11-17 14:58] LABS: VENOUS BASE EXCESS 1.2 mmol/L (-2-2); VENOUS O2 SATURATION 64.3 % (70-80); VENOUS PCO2 51.9 mmHg (38-52); VENOUS PH 7.349 (7.310-7.410)
[2023-11-17 15:06] LABS: BASO % 0.4 % (0-2.0); EOS % 0.2 % (0-4.5); HEMATOCRIT 39.7 % (35.4-49); HEMOGLOBIN 13.9 GM/dL (11.7-16.9); LYMPH % 18.3 % (8-40); MCH 29.6 pg (25.7-33.7); MCHC 35.1 g/dl (32.0-35.9); MEAN CELL VOLUME 84.3 fl (80-96); MEAN PLT VOLUME 7.5 fl (7.5-11.1); MONO % 8.5 % (3.8-10.2); NEUT % 72.6 % (42.8-82.8); PLATELET COUNT 341 10^3/uL (134-434); RBC 4.71 M/mm3 (4.00-5.60); WHITE BLOOD COUNT 8.6 K/mm3 (4.0-10.0)
[2023-11-17 15:12] LABS: POTASSIUM 3.7 mmol/L (3.5-5.1)
[2023-11-17 15:16] LABS: BLOOD UREA NITROGEN 13.7 mg/dL (7-18); CALCIUM 9.2 mg/dL (8.5-10.1); INR 0.99 (0.83-1.09); PROTHROMBIN TIME (PATIENT) 11.5 SEC (9.7-13.0)
[2023-11-17 15:17] LABS: ALBUMIN 3.6 g/dl (3.4-5.0); MAGNESIUM 2.1 mg/dL (1.8-2.4)
[2023-11-17 15:19] LABS: ACTIVATED PTT 33.4 SECONDS (25.2-36.5)
[2023-11-17 15:20] LABS: CREATININE 0.7 mg/dL (0.55-1.3)
[2023-11-17 15:22] LABS: BILIRUBIN,TOTAL 0.3 mg/dL (0.2-1); TOT PROT 7.2 g/dl (6.4-8.2)
[2023-11-17] MEDS: LACTATED RINGERS SOLUTION 1000 ML INFUS.BAG IV ONE (16:00)
[2023-11-17 18:00] VITALS: BP 151/83; PULSE 74; TEMP 97.6
== END 2023-11-17 18:00 | disposition home or self-care (01) ==
LOC: JER 12:32
PROC: 3E033GC Introduction of Other Therapeutic Substance into Peripheral Vein, Percutaneous Approach (ICD-10-PCS; principal; 2023-11-17)
DX: R00.2 Palpitations (principal); R61 Generalized hyperhidrosis; R07.9 Chest pain, unspecified
CPT/HCPCS: 36415; 71045-TC-FY; 80053; 82803; 83690; 83735; 84439; 84443; 84484; 85025; 85610; 85730; 86850; 86900; 86901; 93005; 93010; 99285-25